=== PATIENT | female | born 1965 | race Caucasian/White ===

== ENCOUNTER 2020-01-14 17:59 | Emergency (ER) | payer OTHER, SELFPAY ==
--- OUTSIDE RECORDS SUMMARY | 2020-01-14 19:36 | XMS REPORT | Continuity of Care Document ---
:1965 Author Organization [facility] t Address [address] [place] [address] Care Team Providers Name Role Phone Unavailable Unavailable Unavailable Payers Payer Name Policy Type Policy Number Effective Date Expiration Date S ource Problems This patient has no known problems. Allergies, Adverse Reactions, Alerts Allergy Allergy Status Severity Reaction(s) Onset Inactive Treating Comm ents Source Name Type Date Date Clinician No Known DA Active U [facility] Drug 3-14 [place] Allergie 00:00: d s 00 [facility] Medications This patient has no known medications. Procedures This patient has no known procedures. Results Test Description Test Time Test Comments Results Result [facility] e Comments BAEZ BREAST 2019-09-22 BIOPSY 16:04:00 RUN DATE: 09/22/19 [facility] - LAB PAGE 1 RUN TIME: 1604 Specimen Inquiry RUN USER: INTERFACE PATIENT: NICKIE VAZ LOC: KADI Vasquez #: [id number] AGE/SX: 54/F ROOM: RE09/09/19REG DR: Andreia Graves MD : 63 BED: DIS: STATUS: REG REF TLOC: SPEC #: [id number] RECD: 09/09/19 STATUS: NATIVIDAD REQ #: [id number] EDE: 09/09/[address]: Andreia Graves MD ENTERED: 09/09/19 SP TYPE: BAEZ OTHR DR: No Primary or Family PhysicianORDERED: BAEZ BILLING COPIES TO: No Primary or Family Physician Andreia Graves MD [address] [facility] [address] [place] [address] HISTOLOGY: TISSUE ID BLK PCS ELIZABET LEV PROCEDURE DISPOSITION ____ ___ ___ ___ BREAST, NOS A 2 PROCEDURES: BAEZ BILLING (09/09/19) TISSUES: A. BREAST, NOS - RIGHT BREAST BIOPSY @ 7 O'CLOCK BAEZ PATHOLOGY REPORT Result ID: [id number] Clinical History Right breast mass Diagnosis Breast, right, 7 o'clock, 7 cm from nipple, ultrasound-guided needle core biopsy: USUAL DUCTAL HYPERPLASIA, MILD (see comment) NEGATIVE FOR ATYPICAL HYPERPLASIA OR MALIGNANCY Comments The histologic findings do not explain a mass lesion. Recommend additional studies as clinically indicated. Gross Description "Right breast biopsy @ 7 o'clock, 7 cm from nipple" Received in formalin are four mathew tissue fragments, 0.4 - 1.6 cm, all as A. Fixation time: The specimen was obtained on September 09, 2019 and placed in formalin at 0835 TESTING LEAD, processor started on September 10, 2019 at 0300 TESTING LEAD, CONTINUED ON NEXT PAGE RUN DATE: 09/22/19 [facility] PAGE 2 RUN TIME: 1604 Specimen Inquiry RUN USER: INTERFACE SPEC #: [facility]:[id number] PATIENT: NICKIE VAZ #[id number] (Continued) BAEZ PATHOLOGY REPORT (Continued) fixation time 18 hours 25 minutes. Microscopic Findings "Right breast biopsy @ 7 o'clock, 7 cm from nipple" Breast sections demonstrate breast tissue with usual ductal hyperplasia. No atypical ductal hyperplasia or invasion is present on the sections examined. Intradepartmental Consultation: aTtum Ta M.D. ELECTRONIC SIGNATURE Ary Torres M.D. [phone] Signed SIGNATURE ON Stevie Recio Sharon 09/22/19 1604 END OF REPORT
--- NOTE | 2020-01-14 20:47 | RAD REPORT ---
EXAM DESCRIPTION: Anh Chaparro (2 Views)01/14/2020 8:40 pm CLINICAL HISTORY: Chest pain COMPARISON: None FINDINGS: The lungs appear clear of acute infiltrate. The heart is normal size IMPRESSION: No acute abnormalities displayed
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
[2020-01-14 22:57] VITALS: BP 124/70; TEMP 97.4; O2SAT 99
== END 2020-01-14 22:08 | disposition home or self-care (01) ==
LOC: ER 17:59
DX: M54.5 Low back pain (principal); G89.11 Acute pain due to trauma; V43.52XA Car driver injured in collision with other type car in traffic accident, initial encounter; Y93.89 Activity, other specified; Y92.410 Unspecified street and highway as the place of occurrence of the external cause; Z88.2 Allergy status to sulfonamides
CPT/HCPCS: 71046; 72131; 99283